=== PATIENT | female | born 1955 ===

== ENCOUNTER 2025-01-09 06:43 | Day surgery (SDC) | payer MEDICARE ==
[2025-01-09] MEDS: TETRACAINE 0.5% STERI-UNIT SOL OP ONE ×2 (07:37→07:38)
[2025-01-09] MEDS: Ak-Dilate OPHTHALMIC*** 0.71 ML, Cyclogyl 1% OPHTH SOL 0.71 ML, GATIFLOXACIN 0.5% OPHTH... OP SCH (07:38)
[2025-01-09 08:15] LABS: Calcium 8.9 mg/dL (8.4-10.2); Carbon Dioxide 21.0 mmol/L (22-30); Creatinine 1 0.56 mg/dL (0.52-1.04); EST GLOMERULAR FILTRATION RATE 98.7 ML/MIN; Glucose 200.0 mg/dL (74-106); Potassium 4.2 mmol/L (3.5-5.1)
[2025-01-09] MEDS ORDERED: DEXMEDETOMIDINE 80 MCG/20ML-NS IV NR (08:15)
[2025-01-09] MEDS ORDERED: TRIAMCINOLONE 15 MG/ML INJ INTRAOP NR (08:15)
[2025-01-09] MEDS ORDERED: Epinephrine Preservative Free 1 MG/ML INTRAOP NR (08:15)
[2025-01-09] MEDS ORDERED: VIGAMOX/BSS 0.15% SYR IO NR (08:15)
[2025-01-09] MEDS ORDERED: Zofran 4 MG/2 ML VIAL IV PRN (08:15)
[2025-01-09] MEDS ORDERED: BETADINE 5% OPHTHALMIC 30 ML OP NR (08:15)
[2025-01-09] MEDS ORDERED: propofoL IV ONE (11:30)
[2025-01-09 11:55] VITALS: RESP 16
[2025-01-09 12:00] VITALS: PULSE 61; TEMP 96.5
[2025-01-09] MEDS: ACETAZOLAMIDE 250 MG TABLET PO ONE (12:01)
[2025-01-09 12:06] VITALS: BP 126/69; O2SAT 97
== END 2025-01-09 12:14 | disposition home or self-care (01) ==
LOC: SDC 06:43
PROVIDERS: ATTEND Ophthalmology
DX: H25.811 Combined forms of age-related cataract, right eye (principal); E11.9 Type 2 diabetes mellitus without complications; I10 Essential (primary) hypertension